=== PATIENT | female | born 1940 | race Caucasian/White ===

== ENCOUNTER 2016-06-07 07:25 | Day surgery (SDC) | payer MEDICARE ==
[~2016-06-07 07:25] MED LIST: FENTANYL 250 MCG/5 ML AMP IV PRN; IV START KIT ONE; LACTATED RINGERS 0 ML ONE; LACTATED RINGERS 1,000 ML IV SCH; LACTATED RINGERS 1,000 ML ONE; LIDOCAINE Viscous 2% 15 ML UDCUP PO PRN; MIDAZOLAM HCL 5 MG/5 ML VIAL IV PRN
[2016-06-07] MEDS ORDERED: LIDOCAINE Viscous 2% 15 ML UDCUP ONE (08:15)
[2016-06-07] MEDS ORDERED: FENTANYL 100 MCG/2 ML VIAL ONE (08:15)
[2016-06-07] MEDS ORDERED: MIDAZOLAM HCL 5 MG/5 ML VIAL ONE (08:15)
[2016-06-08 09:50] LABS: HELICOBACTER PYLORII DETECTION NEGATIVE (NEGATIVE)
--- NOTE | 2016-06-12 10:38 | SURGPATH ---
[facility] [address] [place] [id number] Patient Name: MICHELLE VOSS MR#: [id number] : 1940 Gender: F Specimen #: [id number] Collected: 06/07/2016 Received: 06/09/2016 Reported: 06/12/2016 Submitting Phys: ADRIANNA BRITTON Copy To Phys: ARAMIS MCCOY THOMAS M [facility] Clinical History / Pre-Operative Diagnosis: RUQ pain, early satiety, rule out; giardia, celiac sprue, gastritis Specimen Source / Surgical Procedure Performed: #1 duodenal biopsy, #2 antral biopsy Interpretation: 1. DUODENUM, BIOPSY: - SMALL BOWEL MUCOSA WITH NO DIAGNOSTIC ABNORMALITY 2. STOMACH, ANTRUM, BIOPSY: - MILD CHRONIC GASTRITIS, INACTIVE Electronically Signed Out Irma Cain M.D. Gross Description: 1. The specimen is received in formalin labeled with the patient's name and "duodenum". The specimen consists of two fragments of keen soft tissue, 0.6 x 0.3 x 0.2 cm in aggregate. Submitted in toto in one cassette. 2. The specimen is received in formalin labeled with the patient's name and "antrum". The specimen consists of two fragments of keen soft tissue, 0.6 x 0.3 x 0.2 cm in aggregate. Submitted in toto in one cassette. HUGO Grimm Microscopic Description: 1. Sections show fragments of small bowel mucosa with long and well preserved villous processes. There is no significant inflammation and lymphocytes are not increased within the epithelium. No infectious organisms are identified and there is no dysplasia. 2. Sections from the stomach show mild chronic inflammation. There is no significant active inflammation and no Helicobacter organisms are identified. There is no intestinal metaplasia or dysplasia. 1: [id number] 2: 48495 K29.30
== END 2016-06-07 10:00 | disposition home or self-care (01) ==
LOC: SDC 07:25
PROVIDERS: ATTEND Internal Medicine Gastroenterology
PROC: 0DB68ZX Excision of Stomach, Via Natural or Artificial Opening Endoscopic, Diagnostic (ICD-10-PCS; principal; 2016-06-07)
PROC: 0DB98ZX Excision of Duodenum, Via Natural or Artificial Opening Endoscopic, Diagnostic (ICD-10-PCS; 2016-06-07)
DX: K29.50 Unspecified chronic gastritis without bleeding (principal); K29.80 Duodenitis without bleeding; E03.9 Hypothyroidism, unspecified; Z95.0 Presence of cardiac pacemaker; Z79.82 Long term (current) use of aspirin
CPT/HCPCS: 43239; 87081; J3010; J2250; A9270; J7120